=== PATIENT | male | born 1945 | race Caucasian/White ===

== ENCOUNTER 2018-04-02 15:24 | Inpatient (IN) | payer BC, OTHER ==
[~2018-04-02] VITALS: Ht 182.9 cm; Wt 94.5 kg
[~2018-04-02 15:24] MED LIST: ACYC-57 PO; ASPI81TA28 PO; CHOL20007 PO; CRS/10 PO; MULT-506 PO; OMEG10007 PO; PANT40TA PO; PSYL48.59 PO
[2018-04-02] MEDS ORDERED: ACETAMINOPHEN 500 MG TAB PO STA (15:40)
[2018-04-02] MEDS ORDERED: SODIUM CHLORIDE 0.9% 1000ML 1,000 ML IV ONE (15:40)
--- NOTE | 2018-04-02 15:40 | EMERGENCY ROOM VISIT NOTE ---
History Report prepared by Babitaibhollie: Briseyda Valdes Under the Supervision of: Dr. Reza Louis M.D. First contact with patient: 15:32 Chief Complaint: REFERRED BY DOCTOR Stated Complaint: CHILLS, SWEATING, NAUSEA, DR. LARA REFERRED History of Present Illness The patient is a 72 year old male who presents to the Emergency Room with complaints of a persistent fever for the past 2 days. He states he has also experienced a headache, body aches, chills and nausea. This morning he experienced "profuse sweating and shaking", so he went to see his PCP, Dr. Lara , and was referred here to the ED. The patient admits to a minor cough and a decreased appetite, stating he only had a bowl of soup for lunch today. He denies any abdominal pain. He states his only daily medications are for hyperlipidemia and cold sores. [place], but denies noticing any recent rashes on the patient. 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 A total of 10 systems reviewed and were otherwise negative. Past Medical & Surgical Medical Problems: (1) Febrile illness, acute (2) Hyperlipidemia (3) Kidney stone (4) Recurrent cold sores Surgical Problems: (1) History of nephrectomy Family History Cancer Diabetes mellitus Gallbladder disease Heart disease Social History Smoking Status: Former Smoker Alcohol Use: occasionally Drug Use: none Marital Status: Housing Status: lives with family Occupation Status: retired Current/Historical Medications Scheduled Acetaminophen (Tylenol Arthritis Ext Rel), 1,300 MG PO prn ud Acyclovir (Zovirax), 400 MG PO BID Aspirin (Aspirin Ec), 81 MG PO DAILY Cholecalciferol (Vitamin D3), 1 TAB PO QAM Fish Oil ([place]-3), 1,000 MG PO QAM Multivitamin (Multivitamin), 1 TAB PO QAM Pantoprazole (Protonix), 40 MG PO PRN Psyllium (Metamucil), 1 DOSE PO QAM Rosuvastatin Calcium (Crestor), 10 MG PO HS Allergies Coded Allergies: Levofloxacin (Verified Allergy, Intermediate, Metal taste, diarrhea, ) Physical Exam Vital Signs Date Time Temp Pulse Resp B/P (MAP) Pulse Ox O2 Delivery O2 Flow Rate FiO2 04/02/18 17:34 95 Nasal Cannula 2.0 04/02/18 16:38 111 18 155/75 94 Room Air 04/02/18 16:01 106 04/02/18 15:28 36.8 104 20 151/85 93 Room Air Physical Exam GENERAL: Awake, alert, well-appearing, rigors on examination, in no acute distress HENT: Normocephalic, atraumatic. Oropharynx unremarkable. EYES: Normal conjunctiva. Sclera non-icteric. NECK: Supple. No nuchal rigidity. FROM. No JVD. RESPIRATORY: Clear to auscultation. CARDIAC: Regular rate, normal rhythm. Extremities warm and well perfused. Pulses equal. ABDOMEN: Soft, non-distended. No tenderness to palpation. No rebound or guarding. No masses. RECTAL: Deferred. MUSCULOSKELETAL: Chest examination reveals no tenderness. The back is symmetrical on inspection without obvious abnormality. There is no CVA tenderness to palpation. No joint edema. LOWER EXTREMITIES: Calves are equal size bilaterally and non-tender. No edema. No discoloration. NEURO: Normal sensorium. No sensory or motor deficits noted. SKIN: No rash or jaundice noted. Medical Decision & Procedures ER Provider Diagnostic Interpretation: Radiology results as stated below per my review and radiologist interpretation: CHEST ONE VIEW PORTABLE CLINICAL HISTORY: Sepsis COMPARISON STUDY: 03/03/2016 FINDINGS: The bones soft tissues and hemidiaphragms are normal. The cardiomediastinal silhouette is normal. The lungs are clear. The pulmonary vasculature is normal. Slight bibasilar interstitial prominence IMPRESSION: Slight bibasilar interstitial prominence. Otherwise negative study. The above report was generated using voice recognition software. It may contain grammatical, syntax or spelling errors. Electronically signed by: River Slater M.D. 04/02/2018 4:50 PM Laboratory Results Test 04/02/18 15:50 04/02/18 16:04 04/02/18 16:10 04/02/18 16:31 Influenza Type A (RT-PCR) Neg for Influ A (NEG) Influenza Type B (RT-PCR) Neg for Influ B (NEG) Urine Color DK YELLOW Urine Appearance CLEAR (CLEAR) Urine pH 5.0 (4.5-7.5) Urine Specific [employer] [place] [employer] [place] 1.026 (1.000-1.030) Urine Protein 2+ (NEG) Urine Glucose (UA) NEG (NEG) Urine Ketones 1+ (NEG) Urine Occult Blood 1+ (NEG) Urine Nitrite NEG (NEG) Urine Bilirubin NEG (NEG) Urine Urobilinogen NEG (NEG) Urine Leukocyte Esterase NEG (NEG) Urine WBC (Auto) 1-5 /hpf (0-5) Urine RBC (Auto) 5-10 /hpf (0-4) Urine Hyaline Casts (Auto) 1-5 /lpf (0-5) Urine Epithelial Cells (Auto) 10-20 /lpf (0-5) Urine Bacteria (Auto) NEG (NEG) Nucleated RBC Absolute Count (auto) 0.02 K/uL (0-0) Nucleated Red Blood Cells % 0.5 % Toxic Vacuolation OCCASIONAL Platelet Estimate DECREASED Peripheral Blood Smear Path Consult Erythrocyte Sedimentation Rate 17 mm/hr (0-14) Total Creatine Kinase 137 U/L (39-308) Creatine Kinase MB < 1.0 ng/ml (0.5-3.6) Creatine Kinase MB Ratio (0-3.0) Troponin I < 0.015 ng/ml (0-0.045) Globulin 4.1 gm/dl (2.5-4.0) Albumin/Globulin Ratio 1.0 (0.9-2) Procalcitonin 0.79 ng/ml (0-0.5) Lyme Disease IgG Antibody NEG (NEG) Lyme Disease IgM Antibody NEG (NEG) Bedside Lactic Acid Venous 3.37 mmol/L (0.90-1.70) Labs reviewed by ED physician. Medications Administered Medications (Trade) Dose Ordered Sig/[place] Route Start Time Stop Time Status Last Admin Dose Admin Sodium Chloride 1,000 ml @ 999 mls/hr Q1H1M ONCE IV 04/02/18 15:40 04/02/18 16:40 DC 04/02/18 16:32 999 MLS/HR Acetaminophen (Tylenol Tab) 1,000 mg NOW STAT PO 04/02/18 15:40 04/02/18 15:43 DC 04/02/18 16:37 1,000 MG Ondansetron HCl (Zofran Inj) 4 mg NOW STAT IV 04/02/18 15:59 04/02/18 16:00 DC 04/02/18 16:33 4 MG Sodium Chloride 1,000 ml @ 999 mls/hr Q1H1M STAT IV 04/02/18 16:42 04/02/18 17:42 DC 04/02/18 16:42 999 MLS/HR Ketorolac Tromethamine (Toradol Inj) 30 mg NOW STAT IV 04/02/18 16:46 04/02/18 16:48 DC 04/02/18 17:30 30 MG Ceftriaxone Sodium (Rocephin Inj) 2 gm NOW STAT IV 04/02/18 17:16 04/02/18 17:18 DC 04/02/18 17:29 2 GM ECG Per My Interpretation Indication: weakness Rate (beats per minute): 106 Rhythm: sinus tachycardia Findings: other (No ST elevation, no ST depression) ED Course 153: Past medical records reviewed. The patient was evaluated in room C9. A complete history and physical examination was performed. 1550: I reevaluated the patient. He is resting comfortably with warm blankets. 1610: I reevaluated the patient. He has provided a urine specimen. He briefly became nauseous and vomited clear emesis. I will order anti-nausea medication. 1645: I reevaluated the patient. He is currently getting an Xray. 1720: I discussed the patients case with Dr. Ritchie, [facility] Hospitalist. The patient will be further evaluated. 172: I reevaluated the patient. He is still uncomfortable with chills and rigors. I discussed my recommendation he remain in the hospital for further evaluation and management and he and his verbalized complete understanding and agreement. Medical Decision Differential diagnosis: Etiologies such as metabolic, infection, hypo/hyperglycemia, electrolyte abnormalities, cardiac sources, intracerebral event, toxicologic, neurologic, as well as others were entertained. This is a 72-year-old male who presents emergency department complaining of rigors and fevers. Patient was given Tylenol as well as Toradol here in the emergency department. He does not have any evidence of meningitis or encephalitis on physical examination. I did discuss with the patient that we may need a lumbar puncture however using shared medical decision making, the patient does not feel that this is the worst headache of his life. 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 For this reason he was started on 2 g of Rocephin. His lactate is elevated and therefore did discuss the case with the hospitalist service who agreed to admit the patient. While in the emergency department the patient was given 2 L of fluid. Both patient and are in agreement with the treatment plan. Medication Reconcilliation Current Medication List: was personally reviewed by me Blood Pressure Screening Patient's blood pressure: Elevated blood pressure Blood pressure disposition: Referred to PCP (The patients elevated blood pressure will be further managed by the inpatient hospital medicine team) Consults Time Called: 1715 Consulting Physician: Dr. Ritchie, [facility] Returned Call: 1720 I discussed the patients case with Dr. Ritchie, [facility]. The patient will be further evaluated. Impression Primary Impression: Fever Scribe Attestation The scribe's documentation has been prepared under my direction and personally reviewed by me in its entirety. I confirm that the note above accurately reflects all work, treatment, procedures, and medical decision making performed by me. Departure Information Dispostion Being Evaluated By Hospitalist Referrals Ronen Claros M.D. (PCP) Patient Instructions My [facility] Problem Qualifiers Primary Impression: Fever Fever type: unspecified Qualified Codes: R50.9 - Fever, unspecified
[2018-04-02] MEDS ORDERED: ONDANSETRON INJ 2 MG/ML 2 ML VIAL IV STA (15:59)
[2018-04-02] MEDS ORDERED: ACET1TAB84 PO (16:32)
[2018-04-02] MEDS ORDERED: SODIUM CHLORIDE 0.9% 1000ML 1,000 ML IV STA (16:42)
[2018-04-02] MEDS ORDERED: KETOROLAC TROMETHAMINE 30 MG/ML VIAL IV STA (16:46)
--- NOTE | 2018-04-02 16:52 | DIAGNOSTIC IMAGING REPORT ---
CHEST ONE VIEW PORTABLE CLINICAL HISTORY: Sepsis COMPARISON STUDY: 03/03/2016 FINDINGS: The bones soft tissues and hemidiaphragms are normal. The cardiomediastinal silhouette is normal. The lungs are clear. The pulmonary vasculature is normal. Slight bibasilar interstitial prominence IMPRESSION: Slight bibasilar interstitial prominence. Otherwise negative study. The above report was generated using voice recognition software. It may contain grammatical, syntax or spelling errors. Electronically signed by: River Slater M.D. 04/02/2018 4:50 PM Dictated Date/Time: 04/02/2018 4:50 PM
[2018-04-02 16:56] LABS: PTT PATIENT 29.6 SECONDS (21.0-31.0)
[2018-04-02 17:11] LABS: HEMATOCRIT 47.2 % (42-52); HEMOGLOBIN 16.8 g/dL (14.0-18.0); MEAN CELL VOLUME 89.4 fL (80-100); MEAN CORPUSCULAR HEMOGLOBIN 31.8 pg (25-34); MEAN CORPUSCULAR HGB CONC 35.6 g/dl (32-36); MEAN PLATELET VOLUME 9.8 fL (7.4-10.4); NUCLEATED RED BLOOD CELL ABS 0.02 K/uL (0-0); PLATELET COUNT 57 K/uL (130-400); RED CELL DISTRIBUTION WIDTH CV 13.3 % (11.5-14.5); RED CELL DISTRIBUTION WIDTH SD 43.4 fL (36.4-46.3); WHITE BLOOD COUNT 4.65 K/uL (4.8-10.8)
[2018-04-02 17:13] LABS: ALKALINE PHOSPHATASE 65 U/L (45-117); ALT/SGPT 45 U/L (12-78); AST/SGOT 53 U/L (15-37); BLOOD UREA NITROGEN 21 mg/dl (7-18); CALCIUM 8.5 mg/dl (8.5-10.1); CARBON DIOXIDE 24 mmol/L (21-32); CKMB < 1.0 ng/ml (0.5-3.6); GLUCOSE 110 mg/dl (70-99); POTASSIUM 3.6 mmol/L (3.5-5.1); SODIUM 134 mmol/L (136-145); TOTAL PROTEIN 8.1 gm/dl (6.4-8.2)
[2018-04-02] MEDS ORDERED: CEFTRIAXONE SOD INJ 1 GM ADDVIAL IV STA (17:16)
[2018-04-02 17:33] LABS: INFLUENZA A PCR Neg for Influ A (NEG); INFLUENZA B PCR Neg for Influ B (NEG)
[2018-04-02 17:39] LABS: BASO % 0.2 %; BASO ABS # 0.01 K/uL (0-0.2); IG# 0.01 K/uL (0.00-0.02); LYMPH % 7.7 %; LYMPH ABS # 0.36 K/uL (1.2-3.4); MONO % 4.1 %; MONO ABS # 0.19 K/uL (0.11-0.59); NEUT % 87.8 %; NEUT ABS # 4.08 K/uL (1.4-6.5)
[2018-04-02] MEDS ORDERED: ACETAMINOPHEN IV 100 ML IV PRN (17:45)
[2018-04-02] MEDS ORDERED: DiphenhydrAMINE HCL 50 MG/ML VIAL IV PRN (17:45)
[2018-04-02] MEDS ORDERED: ONDANSETRON INJ 2 MG/ML 2 ML VIAL IV PRN (17:45)
[2018-04-02] MEDS ORDERED: PANTOprazole SOD 40 MG TAB PO PRN (18:00)
[2018-04-02] MEDS ORDERED: VANCOMYCIN CONSULT ACTIVE PRN (18:00)
[2018-04-02] MEDS ORDERED: TRAMADOL HCL 50 MG TAB PO PRN (18:00)
[2018-04-02] MEDS ORDERED: IV FLUIDS COMPLETED PRN (18:15)
--- NOTE | 2018-04-02 18:42 | History and Physical ---
History & Physical Date & Time of Service: Apr 02, 2018 at 18:42 Chief Complaint: Chills, Sweating, Nausea, Dr. Lara Referred Primary Care Physician: Ronen Claros M.D. History of Present Illness Source: patient, spouse, hospital records The patient is a 72-year-old male who presents to emergency department with 2 days of persistent fever with headache, generalized body aches,myalgias, arthralgias, chills and nausea without vomiting. He and his reports that he has episodes of intense shaking and sweating. The patient went to see his PCP Dr. Lara today, and was sent to the emergency department for assessment. [place], but does not specifically remember any bites of any sort, tick related or otherwise. He also does not recall any rashes. They have not had any other recent travel or exposures that he is aware of. Past Medical/Surgical History Medical Problems: (1) Febrile illness, acute (2) Headache (3) Hyperlipidemia (4) Kidney stone (5) Recurrent cold sores (6) Vertigo (7) Vomiting Surgical Problems: (1) History of nephrectomy Family History Cancer Diabetes mellitus Gallbladder disease Heart disease Social History Smoking Status: Former Smoker Smokeless Tobacco Use: No Alcohol Use: none Drug Use: none Marital Status: Housing status: lives with family Occupational Status: retired Immunizations History of Influenza Vaccine: Unknown History of Tetanus Vaccine?: Unknown History of Pneumococcal: Unknown History of Hepatitis B Vaccine: Unknown Allergies Coded Allergies: Levofloxacin (Verified Allergy, Intermediate, Metal taste, diarrhea, ) Home Medications Scheduled Acetaminophen (Tylenol Arthritis Ext Rel), 1,300 MG PO prn ud Acyclovir (Zovirax), 400 MG PO BID Aspirin (Aspirin Ec), 81 MG PO DAILY Cholecalciferol (Vitamin D3), 1 TAB PO QAM Fish Oil ([place]-3), 1,000 MG PO QAM Multivitamin (Multivitamin), 1 TAB PO QAM Pantoprazole (Protonix), 40 MG PO PRN Psyllium (Metamucil), 1 DOSE PO QAM Rosuvastatin Calcium (Crestor), 10 MG PO HS Review of Systems The patient denies chest pain, palpitations, shortness of breath, dyspnea on exertion, cough, lower extremity swelling, sore throat, vomiting, diarrhea , constipation, abdominal pain, pelvic pain, blood in urine or stool, dysuria, urinary frequency or urgency, lightheadedness, dizziness, headache, memory loss, loss of consciousness, rash, abnormal bruising or bleeding, imbalance, focal weakness, numbness or tingling in arms or legs,or neck pain. The review of systems is otherwise negative other than for that already noted above, and at least 10 systems have been reviewed. Physical Exam Vital Signs Date Time Temp Pulse Resp B/P (MAP) Pulse Ox O2 Delivery O2 Flow Rate FiO2 04/02/18 18:31 83 16 130/75 98 Room Air 04/02/18 17:34 95 Nasal Cannula 2.0 04/02/18 16:38 111 18 155/75 94 Room Air 04/02/18 16:01 106 04/02/18 15:28 36.8 104 20 151/85 93 Room Air The patient is awake, alert and oriented 3, well developed and well nourished, normocephalic and atraumatic, lying in bed and in no acute distress. HEENT--PERRL, EOMI, mucous membranes and oropharynx dry. Neck--supple. No JVD. No bruits. Thyroid normal, trachea midline, no adenopathy. Heart--normal S1 and S2. No murmurs, rubs or gallops. Lungs--clear bilaterally, no respiratory distress, no accessory muscle use. Abdomen--normal bowel sounds and soft. Nontender. Nondistended, no hernias or masses, no organomegaly. Extremities--no cyanosis or clubbing. No edema. There are good distal pulses b/ l. Dermatologic--normal skin turgor, normal color, no abnormal lymph nodes, no rash. Neurologic--cranial nerves II through XII grossly intact. Rheumatologic--normal range of motion. Psychiatric--normal affect. Diagnostics Laboratory Results Results Past 24 Hours Test 04/02/18 15:50 04/02/18 16:04 04/02/18 16:10 04/02/18 16:31 Range/Units Influenza Type A (RT-PCR) Neg for Influ A NEG Influenza Type B (RT-PCR) Neg for Influ B NEG Urine Color DK YELLOW Urine Appearance CLEAR CLEAR Urine pH 5.0 4.5-7.5 Urine Specific [place] 1.026 1.000-1.030 Urine Protein 2+ NEG Urine Glucose (UA) NEG NEG Urine Ketones 1+ NEG Urine Occult Blood 1+ NEG Urine Nitrite NEG NEG Urine Bilirubin NEG NEG Urine Urobilinogen NEG NEG Urine Leukocyte Esterase NEG NEG Urine WBC (Auto) 1-5 0-5 /hpf Urine RBC (Auto) 5-10 0-4 /hpf Urine Hyaline Casts (Auto) 1-5 0-5 /lpf Urine Epithelial Cells (Auto) 10-20 0-5 /lpf Urine Bacteria (Auto) NEG NEG White Blood Count 4.65 4.8-10.8 K/uL Red Blood Count 5.28 4.7-6.1 M/uL Hemoglobin 16.8 14.0-18.0 g/dL Hematocrit 47.2 42-52 % Mean Corpuscular Volume 89.4 80-100 fL Mean Corpuscular Hemoglobin 31.8 25-34 pg Mean Corpuscular Hemoglobin Concent 35.6 32-36 g/dl Platelet Count 57 130-400 K/uL Mean Platelet Volume 9.8 7.4-10.4 fL Neutrophils (%) (Auto) 87.8 % Lymphocytes (%) (Auto) 7.7 % Monocytes (%) (Auto) 4.1 % Eosinophils (%) (Auto) 0.0 % Basophils (%) (Auto) 0.2 % Neutrophils # (Auto) 4.08 1.4-6.5 K/uL Lymphocytes # (Auto) 0.36 1.2-3.4 K/uL Monocytes # (Auto) 0.19 0.11-0.59 K/uL Eosinophils # (Auto) 0.00 0-0.5 K/uL Basophils # (Auto) 0.01 0-0.2 K/uL RDW Standard Deviation 43.4 36.4-46.3 fL RDW Coefficient of Variation 13.3 11.5-14.5 % Immature Granulocyte % (Auto) 0.2 % Immature Granulocyte # (Auto) 0.01 0.00-0.02 K/uL Nucleated RBC Absolute Count (auto) 0.02 0-0 K/uL Nucleated Red Blood Cells % 0.5 % Toxic Vacuolation OCCASIONAL Platelet Estimate DECREASED Peripheral Blood Smear Path Consult Erythrocyte Sedimentation Rate 17 0-14 mm/hr Prothrombin Time 10.8 9.0-12.0 SECONDS Prothromb Time International Ratio 1.0 0.9-1.1 Activated Partial Thromboplast Time 29.6 21.0-31.0 SECONDS Partial Thromboplastin Ratio 1.1 Sodium Level 134 136-145 mmol/L Potassium Level 3.6 3.5-5.1 mmol/L Chloride Level 99 98-107 mmol/L Carbon Dioxide Level 24 21-32 mmol/L Anion Gap 11.0 3-11 mmol/L Blood Urea Nitrogen 21 7-18 mg/dl Creatinine 1.30 0.60-1.40 mg/dl Est Creatinine Clear Calc Drug Dose 62.0 ml/min Estimated GFR () 63.6 Estimated GFR (Non- 54.9 BUN/Creatinine Ratio 16.0 10-20 Random Glucose 110 70-99 mg/dl Calcium Level 8.5 8.5-10.1 mg/dl Total Bilirubin 1.0 0.2-1 mg/dl Aspartate Amino Transf (AST/SGOT) 53 15-37 U/L Alanine Aminotransferase (ALT/SGPT) 45 12-78 U/L Alkaline Phosphatase 65 45-117 U/L Total Creatine Kinase 137 39-308 U/L Creatine Kinase MB < 1.0 0.5-3.6 ng/ml Creatine Kinase MB Ratio 0-3.0 Troponin I < 0.015 0-0.045 ng/ml Total Protein 8.1 6.4-8.2 gm/dl Albumin 4.0 3.4-5.0 gm/dl Globulin 4.1 2.5-4.0 gm/dl Albumin/Globulin Ratio 1.0 0.9-2 Procalcitonin 0.79 0-0.5 ng/ml Lyme Disease IgG Antibody NEG NEG Lyme Disease IgM Antibody NEG NEG Bedside Lactic Acid Venous 3.37 0.90-1.70 mmol/L Microbiology Results 04/02/18 Blood Culture, Received Pending 04/02/18 Blood Culture, Received Pending Diagnostic Radiology Patient Name: BANDAR VARGAS Unit Number: [id number] Dictated: 04/02/181649 Transcribed: 04/02/181649 MS Printed Date/Time: [~ rep prt dt]/[~ rep prt tm] [~ rep ct labl] - [~ rep ct ivnm] [facility] [place] [address] Dictated: 08/09/18 1650 Transcribed: 04/02/18 1650 MS Printed Date/Time: [~ rep prt dt]/[~ rep prt tm] [~ rep ct labl] - [~ rep ct ivnm] CHEST ONE VIEW PORTABLE CLINICAL HISTORY: Sepsis COMPARISON STUDY: 03/03/2016 FINDINGS: The bones soft tissues and hemidiaphragms are normal. The cardiomediastinal silhouette is normal. The lungs are clear. The pulmonary vasculature is normal. Slight bibasilar interstitial prominence IMPRESSION: Slight bibasilar interstitial prominence. Otherwise negative study. The above report was generated using voice recognition software. It may contain grammatical, syntax or spelling errors. Electronically signed by: River Slater M.D. 04/02/2018 4:50 PM Dictated Date/Time: 04/02/2018 4:50 PM The status of this report is Signed. Draft = Not yet reviewed or approved by Radiologist. Signed = Reviewed and approved by Radiologist. <AttendingPhy></AttendingPhy> <FamilyPhy>Ronen Claros M.D.</FamilyPhy> < PrimaryPhy>Ronen Claros M.D.</PrimaryPhy> <UnitNumber>[id number]</ UnitNumber> <VisitNumber>[id number]</VisitNumber> <PatientName>BANDAR VARGAS</PatientName> <DateOfBirth>1945</DateOfBirth> <Location>[facility]</ Location> <ServiceDate>04/02/18</ServiceDate> <MNE>ESINDI</MNE> <OrderingPhy> Reza Louis MD</OrderingPhy> <OrderingPhyMNE>f rep ord dr figueroa</ OrderingPhyMNE> <DictatingPhyMNE>f rep dict dr figueroa</DictatingPhyMNE> <CCListMNE> f rep ct kaylene</CCListMNE> <AdmittingPhyMNE>f pt admit dr figueroa</AdmittingPhyMNE> < AttendingPhyMNE>f pt attend dr figueroa</AttendingPhyMNE> <ConsultingPhyMNE>f pt consult dr figueroa</ConsultingPhyMNE> <FamilyPhyMNE>f pt fam dr figueroa</FamilyPhyMNE> <OtherPhyMNE>f pt other dr figueroa</OtherPhyMNE> < PrimaryPhyMNE>f pt prim care dr figueroa</PrimaryPhyMNE> <ReferringPhyMNE>f pt referring dr figueroa</ReferringPhyMNE> EKG BANDAR VARGAS ID:[id number] 02-APR-2018 15:42:57 [facility] Poor data quality, interpretation may be adversely affected Sinus tachycardia Right axis deviation Abnormal ECG When compared with ECG of 14-DEC-2014 02:45, QRS axis Shifted right QT has shortened 25mm/s 10mm/mV 150Hz 8.0 SP2 12SL 241 NINFA: 15 Referred by: ED Unconfirmed Vent. rate 106 BPM MS interval 174 ms QRS duration 76 ms QT/QTc 298/395 ms P-R-T axes 63 112 43 1945 (72 yr) Male Room: Loc:15 Warp Trucker:MUNDO Jovel ind: Impression Assessment and Plan Acute febrile illness/polymyalgias and polyarthralgias/lactic acidosis-- Admit to monitored bed to follow closely for possible developing sepsis. 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 Ceftriaxone 2 g IV daily. Vancomycin IV per pharmacokinetic monitoring. Peripheral smear pending. Thrombocytopenia, elevated pro-calcitonin, elevated [id number]-kbiq lactic acid. Labs for ehrlichiosis, anaplasmosis pending. Check EBV, CMV, parvovirus and coxsackie B titers. NSS + KCl 20 mEq at 125 ML's per hour. Serial CBC with differential, chemistry profile and magnesium levels. Thrombocytopenia-- Hold aspirin. Peripheral smear pending. GERD-- Change as needed pantoprazole to daily 40 mg daily. Hyperlipidemia-- Continue rosuvastatin 10 mg at bedtime. Viral prophylaxis-- Continue his usual acyclovir 400 mg p.o. twice daily. Advanced Directives Existing Advance Directive: No Existing Living Will: No Existing Power of Steel Sampler: No Resuscitation Status VTE Prophylaxis Will order VTE Prophylaxis: Yes Social Service Consult None Apply
[2018-04-02 19:12] VITALS: BP 118/74; PULSE 90; TEMP 36.7; O2SAT 95; Ht 182.9 cm; Wt 94.5 kg
[2018-04-02] MEDS ORDERED: VANCOMYCIN IV 2,250 MG in SODIUM CHLORIDE 0.9% 500ML 500 ML IV ONE (19:30)
[2018-04-02] MEDS: NSS + 20MEQ KCL 1000ML 1,000 ML IV SCH (19:43)
[2018-04-02] MEDS: ROSUVASTATIN CALCIUM 10 MG TAB PO SCH (19:44)
--- NOTE | 2018-04-02 20:02 | Pharmacy Progress Note ---
Pharmacy Abx Initial Consult Date of Service Apr 02, 2018. Pharmacy Dosing Scope Date of Consult: 04/02/18 Consultation requested by: Dr. Ritchie Pharmacy is consulted to initiate vancomycin IV dosing therapy, order appropriate labs and adjust drug dose/frequency. Subjective The patient is a 72 year old male admitted on Apr 02, 2018 at 17:59. Objective Height (Feet): 6 Height (Inches): 0 Weight (Kilograms): 94.00 Vital Signs (Past 12Hrs) Vital Signs Past 12 Hours Date Time Temp Pulse Resp B/P (MAP) Pulse Ox O2 Delivery O2 Flow Rate FiO2 04/02/18 19:12 36.7 90 20 118/74 (89) 95 Room Air 04/02/18 18:31 83 16 130/75 98 Room Air 04/02/18 17:34 95 Nasal Cannula 2.0 04/02/18 16:38 111 18 155/75 94 Room Air 04/02/18 16:01 106 04/02/18 15:28 36.8 104 20 151/85 93 Room Air Lab Results (24Hrs) Laboratory Tests (24 Hours) Test 04/02/18 16:10 04/02/18 19:34 Erythrocyte Sedimentation Rate 17 mm/hr (0-14) H White Blood Count 4.65 K/uL (4.8-10.8) L Red Blood Count 5.28 M/uL (4.7-6.1) Hemoglobin 16.8 g/dL (14.0-18.0) Hematocrit 47.2 % (42-52) Mean Corpuscular Volume 89.4 fL (80-100) Mean Corpuscular Hemoglobin 31.8 pg (25-34) Mean Corpuscular Hemoglobin Concent 35.6 g/dl (32-36) Platelet Count 57 K/uL (130-400) L Mean Platelet Volume 9.8 fL (7.4-10.4) Neutrophils (%) (Auto) 87.8 % Lymphocytes (%) (Auto) 7.7 % Monocytes (%) (Auto) 4.1 % Eosinophils (%) (Auto) 0.0 % Basophils (%) (Auto) 0.2 % Neutrophils # (Auto) 4.08 K/uL (1.4-6.5) Lymphocytes # (Auto) 0.36 K/uL (1.2-3.4) L Monocytes # (Auto) 0.19 K/uL (0.11-0.59) Eosinophils # (Auto) 0.00 K/uL (0-0.5) Basophils # (Auto) 0.01 K/uL (0-0.2) Procalcitonin 0.79 ng/ml (0-0.5) H Total Creatine Kinase 137 U/L (39-308) Micro Results Date/Time Source Procedure Growth Status 04/02/18 16:20 Blood Blood Culture Pending Received 04/02/18 16:10 Blood Blood Culture Pending Received Assessment & Plan Assessment 72 year old male admitted with generalized weakness and illness. Empiric vancomycin ordered. Plan vancomycin for treatment of generalized illness Vancomycin IV * Loading dose: 2250 mg (23.9 mg/kg) * Maintenance dose: 1250 mg IV (13.2 mg/kg) every 12 hours * Goal trough level for generalized weakness : 15 to 20 mcg/mL * Trough NOT ordered since currently only ongoing x 48 hours Pharmacy will continue to follow and will adjust dose/frequency as necessary. Thank you.
[2018-04-02 23:23] VITALS: BP 120/61; PULSE 87; TEMP 36.8; O2SAT 97
[2018-04-03] VITALS (8 sets, daily range): BP systolic 106–119; BP diastolic 56–69; PULSE 73–106; TEMP 36.5–38; O2SAT 93–99
[2018-04-03] MEDS: NSS + 20MEQ KCL 1000ML 1,000 ML IV SCH ×3 (05:56→20:38)
[2018-04-03 06:49] LABS: HEMATOCRIT 38.1 % (42-52); HEMOGLOBIN 13.2 g/dL (14.0-18.0); MEAN CELL VOLUME 88.4 fL (80-100); MEAN CORPUSCULAR HEMOGLOBIN 30.6 pg (25-34); MEAN CORPUSCULAR HGB CONC 34.6 g/dl (32-36); MEAN PLATELET VOLUME 9.8 fL (7.4-10.4); PLATELET COUNT 33 K/uL (130-400); RED CELL DISTRIBUTION WIDTH CV 13.4 % (11.5-14.5); RED CELL DISTRIBUTION WIDTH SD 44.1 fL (36.4-46.3); WHITE BLOOD COUNT 2.71 K/uL (4.8-10.8)
[2018-04-03 06:53] LABS: INR 1.1 (0.9-1.1); PTT PATIENT 32.4 SECONDS (21.0-31.0)
[2018-04-03 07:15] LABS: BASO % 0.4 %; BASO ABS # 0.01 K/uL (0-0.2); LYMPH % 9.6 %; LYMPH ABS # 0.26 K/uL (1.2-3.4); MONO % 4.8 %; MONO ABS # 0.13 K/uL (0.11-0.59); NEUT % 85.2 %; NEUT ABS # 2.31 K/uL (1.4-6.5)
[2018-04-03 07:16] LABS: CALCIUM 7.9 mg/dl (8.5-10.1); CREATININE 1.04 mg/dl (0.60-1.40); POTASSIUM 3.9 mmol/L (3.5-5.1); TOTAL PROTEIN 6.3 gm/dl (6.4-8.2)
[2018-04-03] MEDS: PSYLLIUM 58.6% PWD PACK S\\F PO SCH (07:43)
[2018-04-03] MEDS: CHOLECALCIFEROL 1000 INTER.UNIT TAB PO SCH (07:44)
[2018-04-03] MEDS: ACETAMINOPHEN 325 MG TAB PO PRN ×3 (07:44→23:52)
[2018-04-03] MEDS: MULTIVITAMIN TAB PO SCH (07:44)
[2018-04-03] MEDS ORDERED: VANCOMYCIN IV 1,250 MG in SODIUM CHLORIDE 0.9% 250ML 250 ML IV SCH (08:00)
[2018-04-03] MEDS: DOXYCYCLINE HYCLATE 100 MG CAP PO SCH ×2 (10:00→20:12)
--- NOTE | 2018-04-03 10:25 | Family Medicine Progress Note ---
Progress Note Date of Service Apr 03, 2018. Subjective Pt evaluation today including: conversation w/ patient, conversation w/ family , physical exam, chart review, review of studies, review of inpatient medication list Pain: Still reporting myalgia and arthralgia Voiding: no voiding problems Patient reports no change in his symptoms. He continues to report fever, chills , diaphoresis, and headache. Constitutional: + fever, + chills, + sweats Respiratory: + shortness of breath, No cough Cardiovascular: No chest pain Abdomen: No pain, No nausea, No vomiting, No diarrhea Musculoskeletal: + joint pain, + muscle pain Male : + dysuria Neurologic: No numbness/tingling Endo: + fatigue Skin: No rash, No new/changing skin lesions All Other Systems: Reviewed and Negative Medications Current Inpatient Medications Medications (Trade) Dose Ordered Sig/[place] Route Start Time Stop Time Status Last Admin Dose Admin Ondansetron HCl (Zofran Inj) 4 mg Q6H PRN IV 04/02/18 17:45 05/02/18 17:44 Diphenhydramine HCl (Benadryl Inj) 50 mg Q6H PRN IV 04/02/18 17:45 05/02/18 17:44 Acetaminophen 100 ml @ 400 mls/hr Q8H PRN IV 04/02/18 17:45 05/02/18 17:44 Potassium Chloride/Sodium Chloride 1,000 ml @ 125 mls/hr Q8H IV 04/02/18 19:30 05/02/18 19:29 04/03/18 05:56 125 MLS/HR Ceftriaxone Sodium 2000 mg/ Dextrose 70 ml @ 100 mls/hr Q24H IV 04/03/18 18:00 04/05/18 17:59 Vancomycin HCl (Consult) 1 ea UD PRN N/A 04/02/18 18:00 05/02/18 17:59 Acetaminophen (Tylenol Tab) 650 mg Q4H PRN PO 04/02/18 18:00 05/02/18 17:59 04/03/18 07:44 650 MG Multivitamins (Multivitamin Tab) 1 tab QAM PO 04/03/18 09:00 05/03/18 08:59 04/03/18 07:44 1 TAB Pantoprazole Sodium (Protonix Tab) 40 mg DAILY PRN PO 04/02/18 18:00 05/02/18 17:59 Rosuvastatin Calcium (Crestor Tab) 10 mg HS PO 04/02/18 21:00 05/02/18 20:59 04/02/18 19:44 10 MG Cholecalciferol (Vitamin D Tab) 2,000 inter.unit QAM PO 04/03/18 09:00 05/03/18 08:59 04/03/18 07:44 2,000 INTER.UNIT Psyllium Hydrophilic Mucilloid (Metamucil Powder) 1 pkt QAM PO 04/03/18 09:00 05/03/18 08:59 04/03/18 07:43 1 PKT Tramadol HCl (Ultram Tab) 50 mg Q4H PRN PO 04/02/18 18:00 05/02/18 17:59 Miscellaneous (Iv Fluids Completed) 1 ea PRN PRN N/A 04/02/18 18:15 04/02/19 18:14 Vancomycin HCl 1250 mg/Sodium Chloride 275 ml @ 125 mls/hr Q12H IV 04/03/18 08:00 04/04/18 23:59 04/03/18 07:43 125 MLS/HR Doxycycline Hyclate (Vibramycin Cap) 100 mg BID PO 04/03/18 09:00 04/17/18 08:59 04/03/18 10:00 100 MG Objective Vital Signs Date Time Temp Pulse Resp B/P (MAP) Pulse Ox O2 Delivery O2 Flow Rate FiO2 04/03/18 09:05 37.1 04/03/18 08:00 Nasal Cannula 2.0 04/03/18 07:39 38.0 101 20 117/68 (84) 95 Nasal Cannula 2.0 04/03/18 03:33 36.6 106 17 109/69 (82) 98 Room Air 04/02/18 23:23 36.8 87 18 120/61 (80) 97 Nasal Cannula 2.0 04/02/18 19:15 Nasal Cannula 2.0 04/02/18 19:12 36.7 90 20 118/74 (89) 95 Room Air 04/02/18 19:12 Room Air 04/02/18 18:31 83 16 130/75 98 Room Air 04/02/18 17:34 95 Nasal Cannula 2.0 8/9/18 16:38 111 18 155/75 94 Room Air 04/02/18 16:01 106 04/02/18 15:28 36.8 104 20 151/85 93 Room Air Physical Exam General Appearance: WD/WN, no apparent distress Eyes: normal inspection, EOMI, sclerae normal ENT: hearing grossly normal Neck: no adenopathy, no carotid bruits, trachea midline Respiratory/Chest: lungs clear, no respiratory distress, no accessory muscle use, + crackles (bibasilar) Cardiovascular: no edema, no murmur Abdomen: normal bowel sounds, non tender, soft Extremities: normal inspection, no pedal edema, no calf tenderness Neurologic/Psychiatric: alert, normal mood/affect, oriented x 3 Skin: no rash, + diaphoresis Laboratory Results Last Resulted 04/03/18 05:54 Red Blood Count 4.31, Mean Corpuscular Volume 88.4, Mean Corpuscular Hemoglobin 30.6, Mean Corpuscular Hemoglobin Concent 34.6, Mean Platelet Volume 9.8, Neutrophils (%) (Auto) 85.2, Lymphocytes (%) (Auto) 9.6, Monocytes (%) (Auto) 4.8, Eosinophils (%) (Auto) 0.0, Basophils (%) (Auto) 0.4, Neutrophils # (Auto) 2.31, Lymphocytes # (Auto) 0.26, Monocytes # (Auto) 0.13, Eosinophils # (Auto) 0.00, Basophils # (Auto) 0.01 Last Resulted 04/03/18 05:54 Past 24 Hours Test 04/02/18 16:10 04/03/18 05:54 Range/Units Creatine Kinase MB < 1.0 0.5-3.6 ng/ml Creatine Kinase MB Ratio 0-3.0 Prothromb Time International Ratio 1.0 1.1 0.9-1.1 Prothrombin Time 10.8 11.2 9.0-12.0 SECONDS Total Creatine Kinase 137 39-308 U/L Troponin I < 0.015 0-0.045 ng/ml Assessment and Plan Patient is a 72 yo M who presented to ED with a 2 day h/o fevers, chills, headache, myalgias, arthralgias, and nausea. Symptoms in conjunction with elevated POC lactate/LFT, low WBC, low plt is suggestive of anaplasmosis. 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 -Lyme tests negative -Started doxycycline 100mg BID. Expect improvement within 48 hours by (04/05/18) -Will Discontinue ceftriaxone and vancomycin. If worsening lung symptoms in next 48 hours, consider CT chest then restart abx. -Lactate has returned to normal -Peripheral smear pending. -Ehrlichiosis, anaplasmosis, EBV, CMV, parvovirus and coxsackie B titers pending. -NSS + KCl 20 mEq at 125 mL/hr. -Serial CBC with differential, chemistry profile and magnesium levels. -Toradol 15 q6prn if tylenol not sufficient for headache. Thrombocytopenia -Hold aspirin. -Peripheral smear pending. GERD -Pantoprazole 40 mg daily. Hyperlipidemia -Continue rosuvastatin 10 mg hs Viral prophylaxis -Continue his acyclovir 400 mg p.o. twice daily. Dispo: Tele DVTP: none Code: FULL Resident Physician Supervision Note: I interviewed and examined the patient. Discussed with Dr. Grossman and agree with findings and plan as documented in the note. Any exceptions or clarifications are listed here: None Documented By: Prasanna Salamanca feeling the same. not any better not any worse. urine dark. no cough/sob/ chest pain vitals noted nad breathing unlabored lungs w faint base rales no rhonchi no wheeze good effort labs and diagnostics reviewed and noted anaplasmosis - doxy. supportive care. time septic picture - initially broad concerns - after further review, seems to be anaplasmosis - see above. no evidence of other infection - safe to stop vanco and ceftriaxone hypoxia - CXR read as slight bibasilar interstitial prominence - exam nonspecific - most likely atelectasis - incentive spirometry, wean O2, close clinical f/u. if worsens and shows overtly pneumonia (unlikely) would then resume broader abx; if fails to improve but picture unclear - CT chest. that said, most likely hypoxia will slowly resolve with incentive spirometry and increased activity hematuria - almost certainly nonspecific and amplified by high sp grav. visibly urine clearing with hydration. due to male/age - repeat UA/micro in 4wks to ensure clearing otherwise as above he does note baseline hx of thrombocytopenia - would consider baseline smoldering ITP. has had w/u at [facility]. never has bleeding - mostly this relates as it obviously would lower target for recovery of platelets Resident Tracking Resident Involvement: Resident Care Provided Care Provided: Adult Hospital Medicine
[2018-04-03] MEDS ORDERED: KETOROLAC TROMETHAMINE 15 MG/ML VIAL IV PRN (13:00)
[2018-04-03] MEDS ORDERED: CEFTRIAXONE SOD INJ 2,000 MG in DEXTROSE 5% 50ML 50 ML IV SCH (18:00)
[2018-04-03] MEDS: ROSUVASTATIN CALCIUM 10 MG TAB PO SCH (20:12)
[2018-04-03] MEDS: ACYCLOVIR 200 MG CAP PO SCH (20:13)
[2018-04-04] MEDS: NSS + 20MEQ KCL 1000ML 1,000 ML IV SCH ×2 (04:31→12:32)
[2018-04-04] MEDS: ACETAMINOPHEN 325 MG TAB PO PRN ×2 (04:42→15:28)
[2018-04-04 06:37] LABS: PTT PATIENT 34.9 SECONDS (21.0-31.0)
[2018-04-04 06:41] LABS: ALBUMIN 2.7 gm/dl (3.4-5.0); CALCIUM 7.7 mg/dl (8.5-10.1); CREATININE 0.73 mg/dl (0.60-1.40); POTASSIUM 3.8 mmol/L (3.5-5.1); TOTAL PROTEIN 5.5 gm/dl (6.4-8.2)
[2018-04-04 06:50] LABS: MEAN CELL VOLUME 88.8 fL (80-100); MEAN CORPUSCULAR HEMOGLOBIN 30.5 pg (25-34); MEAN CORPUSCULAR HGB CONC 34.3 g/dl (32-36); PLATELET COUNT 29 K/uL (130-400); RED CELL DISTRIBUTION WIDTH CV 13.5 % (11.5-14.5); RED CELL DISTRIBUTION WIDTH SD 44.5 fL (36.4-46.3); WHITE BLOOD COUNT 1.48 K/uL (4.8-10.8)
[2018-04-04 06:51] LABS: BASO ABS # 0.03 K/uL (0-0.2); LYMPH % 22.3 %; LYMPH ABS # 0.33 K/uL (1.2-3.4); MONO % 12.8 %; MONO ABS # 0.19 K/uL (0.11-0.59); NEUT % 62.9 %; NEUT ABS # 0.93 K/uL (1.4-6.5)
[2018-04-04] MEDS ORDERED: VANCOMYCIN TROUGH ONE (07:30)
[2018-04-04] MEDS: MULTIVITAMIN TAB PO SCH (07:40)
[2018-04-04] MEDS: DOXYCYCLINE HYCLATE 100 MG CAP PO SCH ×2 (07:40→20:22)
[2018-04-04] MEDS: CHOLECALCIFEROL 1000 INTER.UNIT TAB PO SCH (07:40)
[2018-04-04] MEDS: PSYLLIUM 58.6% PWD PACK S\\F PO SCH (07:40)
[2018-04-04] MEDS: ACYCLOVIR 200 MG CAP PO SCH ×2 (07:40→20:22)
[2018-04-04 08:00] VITALS: O2SAT 93
[2018-04-04 08:21] VITALS: BP 127/75; PULSE 68; TEMP 36.3; O2SAT 97
[2018-04-04 08:26] VITALS: BP 130/86; PULSE 109; O2SAT 99
[2018-04-04 15:53] VITALS: BP 126/66; PULSE 86; TEMP 38.4; O2SAT 96
[2018-04-04 16:00] VITALS: O2SAT 96
--- NOTE | 2018-04-04 16:07 | Family Medicine Progress Note ---
Progress Note Date of Service Apr 04, 2018. Subjective Pt evaluation today including: conversation w/ patient, conversation w/ family , physical exam, chart review, lab review PO Intake: adequate, tolerating regular diet Voiding: no voiding problems Doing better this morning, did report chills overnight, no documented fever overnight. Was able to get up and shower this morning. Constitutional: + chills, + sweats, + fatigue, No fever Respiratory: No cough, No sputum, No wheezing, No shortness of breath, No dyspnea on exertion Cardiovascular: No chest pain, No edema, No palpitations Abdomen: No pain, No nausea, No vomiting, No diarrhea, No constipation Musculoskeletal: + joint pain, + muscle pain Male : No dysuria, No urinary frequency, No incontinence, No nocturia more than once/night, No slowing stream Medications Current Inpatient Medications Medications (Trade) Dose Ordered Sig/[place] Route Start Time Stop Time Status Last Admin Dose Admin Ondansetron HCl (Zofran Inj) 4 mg Q6H PRN IV 04/02/18 17:45 05/02/18 17:44 Diphenhydramine HCl (Benadryl Inj) 50 mg Q6H PRN IV 04/02/18 17:45 05/02/18 17:44 Acetaminophen (Tylenol Tab) 650 mg Q4H PRN PO 04/02/18 18:00 05/02/18 17:59 04/04/18 15:28 650 MG Multivitamins (Multivitamin Tab) 1 tab QAM PO 04/03/18 09:00 05/03/18 08:59 04/04/18 07:40 1 TAB Pantoprazole Sodium (Protonix Tab) 40 mg DAILY PRN PO 04/02/18 18:00 05/02/18 17:59 Rosuvastatin Calcium (Crestor Tab) 10 mg HS PO 04/02/18 21:00 05/02/18 20:59 04/03/18 20:12 10 MG Cholecalciferol (Vitamin D Tab) 2,000 inter.unit QAM PO 04/03/18 09:00 05/03/18 08:59 04/04/18 07:40 2,000 INTER.UNIT Psyllium Hydrophilic Mucilloid (Metamucil Powder) 1 pkt QAM PO 04/03/18 09:00 9/9/18 08:59 04/04/18 07:40 1 PKT Tramadol HCl (Ultram Tab) 50 mg Q4H PRN PO 04/02/18 18:00 05/02/18 17:59 04/03/18 20:13 50 MG Miscellaneous (Iv Fluids Completed) 1 ea PRN PRN N/A 04/02/18 18:15 04/02/19 18:14 Doxycycline Hyclate (Vibramycin Cap) 100 mg BID PO 04/03/18 09:00 04/17/18 08:59 04/04/18 07:40 100 MG Ketorolac Tromethamine (Toradol Inj) 15 mg Q6H PRN IV 04/03/18 13:00 04/08/18 12:59 Acyclovir (Zovirax Cap) 400 mg BID PO 04/03/18 20:00 05/03/18 20:59 04/04/18 07:40 400 MG Objective Vital Signs Date Time Temp Pulse Resp B/P (MAP) Pulse Ox O2 Delivery O2 Flow Rate FiO2 04/04/18 15:53 38.4 86 18 126/66 (86) 96 Room Air 04/04/18 08:21 36.3 68 17 127/75 (92) 97 04/04/18 08:00 93 Room Air 04/04/18 00:00 Room Air 04/03/18 17:30 93 Room Air 04/03/18 17:26 36.7 99 18 106/65 (79) 93 Room Air 04/03/18 16:07 36.8 89 18 99 2.0 Physical Exam General Appearance: WD/WN, no apparent distress Eyes: PERRL, EOMI, sclerae normal, funduscopic exam normal Neck: supple, no adenopathy, thyroid normal Respiratory/Chest: chest non-tender, lungs clear, normal breath sounds, no respiratory distress, no accessory muscle use Cardiovascular: regular rate, rhythm, no edema, no murmur Abdomen: normal bowel sounds, non tender, soft, no organomegaly Extremities: non-tender, normal inspection, no pedal edema, no calf tenderness Neurologic/Psychiatric: alert, normal mood/affect, oriented x 3 Skin: normal color, warm/dry, no rash Laboratory Results 04/04/18 05:52 Red Blood Count 3.94, Mean Corpuscular Volume 88.8, Mean Corpuscular Hemoglobin 30.5, Mean Corpuscular Hemoglobin Concent 34.3, Mean Platelet Volume 11.0, Neutrophils (%) (Auto) 62.9, Lymphocytes (%) (Auto) 22.3, Monocytes (%) (Auto) 12.8, Eosinophils (%) (Auto) 0.0, Basophils (%) (Auto) 2.0, Neutrophils # (Auto ) 0.93, Lymphocytes # (Auto) 0.33, Monocytes # (Auto) 0.19, Eosinophils # (Auto ) 0.00, Basophils # (Auto) 0.03 04/04/18 05:52 Test 04/04/18 05:52 White Blood Count 1.48 K/uL (4.8-10.8) Red Blood Count 3.94 M/uL (4.7-6.1) Hemoglobin 12.0 g/dL (14.0-18.0) Hematocrit 35.0 % (42-52) Mean Corpuscular Volume 88.8 fL (80-100) Mean Corpuscular Hemoglobin 30.5 pg (25-34) Mean Corpuscular Hemoglobin Concent 34.3 g/dl (32-36) Platelet Count 29 K/uL (130-400) Mean Platelet Volume 11.0 fL (7.4-10.4) Neutrophils (%) (Auto) 62.9 % Lymphocytes (%) (Auto) 22.3 % Monocytes (%) (Auto) 12.8 % Eosinophils (%) (Auto) 0.0 % Basophils (%) (Auto) 2.0 % Neutrophils # (Auto) 0.93 K/uL (1.4-6.5) Lymphocytes # (Auto) 0.33 K/uL (1.2-3.4) Monocytes # (Auto) 0.19 K/uL (0.11-0.59) Eosinophils # (Auto) 0.00 K/uL (0-0.5) Basophils # (Auto) 0.03 K/uL (0-0.2) RDW Standard Deviation 44.5 fL (36.4-46.3) RDW Coefficient of Variation 13.5 % (11.5-14.5) Immature Granulocyte % (Auto) 0.0 % Immature Granulocyte # (Auto) 0.00 K/uL (0.00-0.02) Echinocytes 2+ Prothrombin Time 10.9 SECONDS (9.0-12.0) Prothromb Time International Ratio 1.0 (0.9-1.1) Activated Partial Thromboplast Time 34.9 SECONDS (21.0-31.0) Partial Thromboplastin Ratio 1.3 Anion Gap 7.0 mmol/L (3-11) Est Creatinine Clear Calc Drug Dose 110.8 ml/min Estimated GFR () 108.2 Estimated GFR (Non- 93.3 BUN/Creatinine Ratio 19.3 (10-20) Calcium Level 7.7 mg/dl (8.5-10.1) Magnesium Level 1.9 mg/dl (1.8-2.4) Total Bilirubin 0.6 mg/dl (0.2-1) Direct Bilirubin 0.2 mg/dl (0-0.2) Aspartate Amino Transf (AST/SGOT) 82 U/L (15-37) Alanine Aminotransferase (ALT/SGPT) 59 U/L (12-78) Alkaline Phosphatase 55 U/L (45-117) Total Protein 5.5 gm/dl (6.4-8.2) Albumin 2.7 gm/dl (3.4-5.0) Assessment and Plan Patient is a 72 yo M who presented to ED with a 2 day h/o fevers, chills, headache, myalgias, arthralgias, and nausea. Symptoms in conjunction with elevated POC lactate/LFT, low WBC, low plt is suggestive of anaplasmosis. 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 - Peripheral smear--suggest anaplasmosis based on leukocytic inclusions - Lyme tests negative - Continue doxycycline 100mg BID - If worsening lung symptoms in next 48 hours, consider CT chest then restart broad spectrum abx - Ehrlichiosis, anaplasmosis, EBV, CMV, parvovirus and coxsackie B titers pending. - Serial CBC with differential, chemistry profile and magnesium levels. - Toradol 15 q6prn if Tylenol not sufficient for headache. Thrombocytopenia/Leukocytosis/Anemia - Patient has a history of low platelets - Likely 2/2 infection, will continue to follow counts - If counts do not improve, will consult hematology - Hold aspirin GERD -Pantoprazole 40 mg daily. Hyperlipidemia -Continue rosuvastatin 10 mg hs Viral prophylaxis -Continue his acyclovir 400 mg p.o. twice daily. DVTP: none Code: FULL
[2018-04-04] MEDS ORDERED: IBUPROFEN 200 MG TAB PO PRN (18:00)
--- NOTE | 2018-04-04 18:52 | DIAGNOSTIC IMAGING REPORT ---
TWO VIEW CHEST CLINICAL HISTORY: Fever. FINDINGS: PA and lateral chest radiographs are compared to study dated 04/02/2018. The heart is top normal for projection and there is mild atherosclerotic calcification of the thoracic aorta. Streaky airspace opacities are seen at the left lung base. Trace pleural effusions are identified. There is no pneumothorax. The skeletal structures are osteopenic. Degenerative change is seen throughout the thoracic spine. IMPRESSION: There are streaky airspace opacities at the left lung base and trace pleural effusions. The appearance is concerning for pneumonia/aspiration pneumonitis. Clinical correlation will be required and radiographic follow-up to resolution is recommended. Electronically signed by: Johnson Muñoz M.D. 04/04/2018 6:50 PM Dictated Date/Time: 04/04/2018 6:47 PM
[2018-04-04] MEDS: CEFTRIAXONE SOD INJ 2,000 MG in DEXTROSE 5% 50ML 50 ML IV SCH (20:22)
[2018-04-04] MEDS: ROSUVASTATIN CALCIUM 10 MG TAB PO SCH (20:23)
[2018-04-04 23:10] VITALS: BP 133/77; PULSE 77; TEMP 37.1; O2SAT 98
[2018-04-05 04:15] VITALS: TEMP 37.2
[2018-04-05 07:50] VITALS: BP 165/88; PULSE 82; TEMP 36.6; O2SAT 96
[2018-04-05] MEDS: DOXYCYCLINE HYCLATE 100 MG CAP PO SCH ×2 (07:56→20:04)
[2018-04-05] MEDS: PSYLLIUM 58.6% PWD PACK S\\F PO SCH (07:56)
[2018-04-05] MEDS: MULTIVITAMIN TAB PO SCH (07:57)
[2018-04-05] MEDS: ACYCLOVIR 200 MG CAP PO SCH (07:57)
[2018-04-05] MEDS: CHOLECALCIFEROL 1000 INTER.UNIT TAB PO SCH (07:57)
[2018-04-05 08:30] LABS: HEMATOCRIT 40.8 % (42-52); HEMOGLOBIN 14.4 g/dL (14.0-18.0); MEAN CELL VOLUME 88.3 fL (80-100); MEAN CORPUSCULAR HEMOGLOBIN 31.2 pg (25-34); MEAN CORPUSCULAR HGB CONC 35.3 g/dl (32-36); RED CELL DISTRIBUTION WIDTH CV 13.4 % (11.5-14.5); RED CELL DISTRIBUTION WIDTH SD 43.6 fL (36.4-46.3); WHITE BLOOD COUNT 2.76 K/uL (4.8-10.8)
[2018-04-05 08:32] LABS: MEAN PLATELET VOLUME 10.9 fL (7.4-10.4); PLATELET COUNT 35 K/uL (130-400)
[2018-04-05 08:39] LABS: PTT PATIENT 28.4 SECONDS (21.0-31.0)
[2018-04-05 09:05] LABS: ALBUMIN 3.3 gm/dl (3.4-5.0); CALCIUM 8.5 mg/dl (8.5-10.1); CREATININE 0.84 mg/dl (0.60-1.40); POTASSIUM 3.8 mmol/L (3.5-5.1); TOTAL PROTEIN 7.1 gm/dl (6.4-8.2)
--- NOTE | 2018-04-05 13:09 | HEMATOLOGY CONSULTATION ---
DATE OF CONSULTATION: 04/05/2018 REASON FOR CONSULTATION: Pancytopenia. 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 He presented with 2 days persistent low-grade fever, headache, myalgias, arthralgias, chills, and nausea without vomiting. The patient was seen by his primary care physician on the day of admission and was subsequently sent to the Emergency Department for assessment. The patient has been worked up extensively, specifically seeking possible tick-borne illness, anaplasmosis per se. The patient is not aware of any tick bite or unusual rashes leading up to the febrile illness. 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 He has no history of hematologic disease or neoplasia otherwise. A multitude of viral cultures have been taken with results pending. I have been asked to see Dr. Morton because of his precipitously dropping peripheral blood counts. On admission, his white count was in the low normal range as well as hemoglobin and his platelets have dropped to 57,000. He does report following with hematology at [place] because of borderline low platelets, but has been subsequently released to the care of his primary physician and has not followed up further. Peripheral blood counts have been steadily dropping reaching jason yesterday at which time his white count had fallen to 1480, hemoglobin 12, and platelet count of 29,000. His absolute neutrophil count at that time was . Today, however, his counts are once again on the upswing and suspect will continue to head towards normal. His ANC is 1400 today. Clinically, he is much better and apparently being maintained on oral doxycycline. I fielded a multitude of questions from the patient and his and they have verbalized understanding. PAST MEDICAL HISTORY: Nephrolithiasis, recurrent cold sores. PAST SURGICAL HISTORY: Status post nephrectomy. MEDICATIONS: Prior to admission include Crestor 10 mg p.o. daily, Metamucil 1 dose p.o. q.a.m., Protonix 40 mg p.o. as needed, multivitamin 1 p.o. daily, omega fish oil 1000 mg p.o. daily, cholecalciferol 1 tablet p.o. daily, aspirin 81 mg p.o. daily, acyclovir 400 mg p.o. b.i.d., Extra Strength Tylenol 1300 mg p.o. p.r.n. ALLERGIES: LEVOFLOXACIN. FAMILY HISTORY: Positive for cancer, diabetes mellitus, gallbladder disease, and heart disease. SOCIAL HISTORY: The patient is a retired President of [employer]. He is . Nonsmoker, nondrinker, and resides with his family. REVIEW OF SYSTEMS: CONSTITUTIONAL: As per HPI most notably for fever, headache, arthralgias, myalgias, chills, rigors, with nausea and diaphoresis. His appetite has also been tenuous but is improving. No dramatic weight loss reported. SKIN: No rashes or lesions. He does have history of dermatosis, recently undergone Mohs procedure on the back of his head. HEENT: Again, initially reported headache which has subsided. No vertigo or lightheadedness reported. No acute visual or hearing deficits. No sinus symptoms, sore throat, or dysphagia. LYMPH: No history of lymphoproliferative disease. CARDIAC: No history of coronary artery disease, no angina or palpitations. PULMONARY: Negative for COPD. No shortness of breath, dyspnea or orthopnea. No cough or hemoptysis. GASTROINTESTINAL: Negative for abdominal pain. He was initially nauseated, but that has subsided. No emesis reported. No hematochezia, melena stools or paramjit rectal bleeding reported. GENITOURINARY: No history of prostate disease. No hematuria, dysuria, urinary incontinence. MUSCULOSKELETAL: Positive for arthralgias or myalgias, again, on admission, but have improved. He denies muscle weakness. PSYCHIATRIC: Negative for anxiety, depression, or psychoses. ENDOCRINE: Negative for diabetes or thyroid disease. NEUROLOGIC: Negative for seizure, stroke, or migraine headache. HEMATOLOGIC: Positive for pancytopenia. PHYSICAL EXAMINATION: GENERAL: Very pleasant, well-nourished 72-year-old gentleman, awake, alert, and appropriate, in no acute distress. VITAL SIGNS: Temperature 36.6, pulse 82, respiratory rate 16, blood pressure 165/88. SKIN: Warm, dry, noncyanotic without petechia, rash or ecchymosis. HEENT: Head is atraumatic, normocephalic. Eyes: PERRLA, EOMI. Sclerae nonicteric. No conjunctival injection. Nares patent without rhinorrhea or discharge. Throat is clear. Tongue is midline. Mucous membranes are moist. NECK: Supple without JVD or thyromegaly. LYMPH: No cervical, supraclavicular, axillary, or inguinal palpable nodes. HEART: Regular rate and rhythm. No clicks, rubs, murmurs, or gallops. LUNGS: Clear to auscultation bilaterally. ABDOMEN: Soft, nontender, nondistended, without palpable hepatosplenomegaly. EXTREMITIES: Musculoskeletal strength and pulses were equal in all 4 quadrants. No clubbing, cyanosis, or edema otherwise. NEUROLOGICAL: He is awake, alert, and oriented x3. Cranial nerves are grossly intact. LABORATORY DATA: WBC count 2760, hemoglobin 14.4, platelet count 35,000 with an absolute neutrophil count of 1400. Chemistries: Sodium 137, potassium 3.8, chloride 102, carbon dioxide 28, BUN 10, creatinine 0.84. AST 234, ALT 190, alkaline phosphatase is slightly elevated at 4.2, and albumin is 3.3 and improving. IMPRESSION: 1. Febrile illness, etiology unclear. 2. Elevated liver transaminases. 3. Pancytopenia secondary to myelosuppression. 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 They were both very helpful in providing pertinent clinical information leading to his admission. [place]. It is conceivable he suffered a tick-borne infection and titers are pending at the time of dictation. Clearly, he seems to be responding to current therapy and no intervention from a hematologic standpoint is necessary at this time. I informed Dr. Morton's as long as he continues to improve clinically, I see no reason for him not to be discharged in next 24 hours with close hematologic followup. I would be more than happy to see him in the office later on this week and check his peripheral blood counts. Presently, the diagnosis considered is anaplasmosis but certainly ehrlichiosis and possibly cytomegalovirus can also result in transient hepatitis. I will be anxious to review final culture results. I reassured Dr. Morton and his that I did not feel there is any evidence for an emerging hematologic malignancy and it is a very optimistic sign his counts are on the upswing and expect him to normalize within the next several days to week. Thank you very much for allowing me to participate in his care. If you have any questions or concerns, feel free to contact me at any time.
--- NOTE | 2018-04-05 14:38 | Family Medicine Progress Note ---
Progress Note Date of Service Apr 05, 2018. Subjective Pt evaluation today including: conversation w/ patient, conversation w/ family , physical exam, chart review, lab review Doing well this morning. Tolerating breakfast, ambulating normally, took a shower without assistance. Still feels fatigued. Constitutional: + fatigue, No fever, No chills, No sweats Respiratory: No cough, No sputum, No wheezing, No shortness of breath Cardiovascular: No chest pain, No edema, No palpitations Abdomen: No pain, No nausea, No vomiting, No diarrhea Medications Current Inpatient Medications Medications (Trade) Dose Ordered Sig/[place] Route Start Time Stop Time Status Last Admin Dose Admin Ondansetron HCl (Zofran Inj) 4 mg Q6H PRN IV 04/02/18 17:45 05/02/18 17:44 Diphenhydramine HCl (Benadryl Inj) 50 mg Q6H PRN IV 04/02/18 17:45 05/02/18 17:44 Multivitamins (Multivitamin Tab) 1 tab QAM PO 04/03/18 09:00 05/03/18 08:59 04/05/18 07:57 1 TAB Pantoprazole Sodium (Protonix Tab) 40 mg DAILY PRN PO 04/02/18 18:00 05/02/18 17:59 Rosuvastatin Calcium (Crestor Tab) 10 mg HS PO 04/02/18 21:00 05/02/18 20:59 Future Hold 04/04/18 20:23 10 MG Cholecalciferol (Vitamin D Tab) 2,000 inter.unit QAM PO 04/03/18 09:00 05/03/18 08:59 04/05/18 07:57 2,000 INTER.UNIT Psyllium Hydrophilic Mucilloid (Metamucil Powder) 1 pkt QAM PO 04/03/18 09:00 05/03/18 08:59 04/05/18 07:56 1 PKT Tramadol HCl (Ultram Tab) 50 mg Q4H PRN PO 04/02/18 18:00 05/02/18 17:59 04/03/18 20:13 50 MG Miscellaneous (Iv Fluids Completed) 1 ea PRN PRN N/A 04/02/18 18:15 04/02/19 18:14 Doxycycline Hyclate (Vibramycin Cap) 100 mg BID PO 04/03/18 09:00 04/17/18 08:59 04/05/18 07:56 100 MG Ketorolac Tromethamine (Toradol Inj) 15 mg Q6H PRN IV 04/03/18 13:00 04/08/18 12:59 Ibuprofen (Advil Tab) 400 mg QID PRN PO 04/04/18 18:00 05/04/18 17:59 Ceftriaxone Sodium 2000 mg/ Dextrose 70 ml @ 100 mls/hr Q24H IV 04/04/18 20:00 04/14/18 19:59 04/04/18 20:22 100 MLS/HR Objective Vital Signs Date Time Temp Pulse Resp B/P (MAP) Pulse Ox O2 Delivery O2 Flow Rate FiO2 04/05/18 08:00 Room Air 04/05/18 07:50 36.6 82 16 165/88 (113) 96 Room Air 04/05/18 04:15 37.2 04/04/18 23:30 Room Air 04/04/18 23:10 37.1 77 16 133/77 (95) 98 Room Air 04/04/18 20:00 Room Air 04/04/18 16:00 96 Room Air 04/04/18 15:53 38.4 86 18 126/66 (86) 96 Room Air Physical Exam General Appearance: WD/WN, no apparent distress Neck: supple, no adenopathy, trachea midline Respiratory/Chest: chest non-tender, lungs clear, normal breath sounds, no respiratory distress, no accessory muscle use, + crackles (bilateral bases ) Cardiovascular: regular rate, rhythm, no edema, no murmur Abdomen: normal bowel sounds, non tender, soft Extremities: normal range of motion, non-tender, no pedal edema Neurologic/Psychiatric: alert, normal mood/affect, oriented x 3 Skin: normal color, warm/dry, no rash Laboratory Results 04/05/18 08:18 Red Blood Count 4.62, Mean Corpuscular Volume 88.3, Mean Corpuscular Hemoglobin 31.2, Mean Corpuscular Hemoglobin Concent 35.3, Mean Platelet Volume 10.9 04/05/18 08:18 Test 04/05/18 08:18 White Blood Count 2.76 K/uL (4.8-10.8) Red Blood Count 4.62 M/uL (4.7-6.1) Hemoglobin 14.4 g/dL (14.0-18.0) Hematocrit 40.8 % (42-52) Mean Corpuscular Volume 88.3 fL (80-100) Mean Corpuscular Hemoglobin 31.2 pg (25-34) Mean Corpuscular Hemoglobin Concent 35.3 g/dl (32-36) Platelet Count 35 K/uL (130-400) Mean Platelet Volume 10.9 fL (7.4-10.4) RDW Standard Deviation 43.6 fL (36.4-46.3) RDW Coefficient of Variation 13.4 % (11.5-14.5) Neutrophils % (Manual) 51.2 % Lymphocytes % (Manual) 24.4 % Variant Lymphocytes % (manual) 16.0 % Monocytes % (Manual) 7.6 % Basophils % (Manual) 0.8 % (0-2) Neutrophils # (Manual) 1.41 K/uL (1.4-6.5) Total Absolute Neutrophils 1.41 K/uL (1.4-6.5) Lymphocytes # (Manual) 0.67 K/uL (1.2-3.4) Absolute Variant Lymphocytes 0.44 K/uL Total Absolute Lymphocytes 1.12 K/uL (1.2-3.4) Monocytes # (Manual) 0.21 K/uL (0.11-0.59) Basophils # (Manual) 0.02 K/uL (0-0.2) Large Platelets 1+ Prothrombin Time 10.1 SECONDS (9.0-12.0) Prothromb Time International Ratio 1.0 (0.9-1.1) Activated Partial Thromboplast Time 28.4 SECONDS (21.0-31.0) Partial Thromboplastin Ratio 1.1 Anion Gap 8.0 mmol/L (3-11) Est Creatinine Clear Calc Drug Dose 96.3 ml/min Estimated GFR () 102.1 Estimated GFR (Non- 88.1 BUN/Creatinine Ratio 11.3 (10-20) Calcium Level 8.5 mg/dl (8.5-10.1) Magnesium Level 2.0 mg/dl (1.8-2.4) Total Bilirubin 0.7 mg/dl (0.2-1) Direct Bilirubin 0.2 mg/dl (0-0.2) Aspartate Amino Transf (AST/SGOT) 234 U/L (15-37) Alanine Aminotransferase (ALT/SGPT) 190 U/L (12-78) Alkaline Phosphatase 142 U/L (45-117) Total Protein 7.1 gm/dl (6.4-8.2) Albumin 3.3 gm/dl (3.4-5.0) Assessment and Plan Patient is a 72 yo M who presented to ED with a 2 day h/o fevers, chills, headache, myalgias, arthralgias, and nausea. Symptoms in conjunction with elevated POC lactate/LFT, low WBC, low plt is suggestive of anaplasmosis. 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 - Serial CBC with differential, chemistry profile and magnesium levels - Ibuprofen for headache, fever Transaminitis - Elevated LFT's are consistent with Anaplasmosis, but the patient's numbers increased > 2 fold in the course of 24 hours despite clinical improvement - Patient does have a PMH of liver cyst, denies h/o fatty liver disease - Dc offending medications including Tylenol, Rosuvastatin and Acyclovir - Prudent to r/o viral hepatitis including Hep A/B/C, EBV, CMV--added to morning labs - Ordered Liver USG to be done this afternoon Thrombocytopenia/Leukocytosis/Anemia - WBC, PLT improved this am, no longer on neutropenic precautions - 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 Hyperlipidemia -Hold rosuvastatin 10 mg hs in the setting of increasing LFT's Viral prophylaxis - holding acyclovir in the setting of increasing LFT's - Awaiting hepatitis panel DVTP: none Code: FULL
[2018-04-05 15:27] VITALS: BP 153/83; PULSE 74; TEMP 36.6; O2SAT 96
--- NOTE | 2018-04-05 17:20 | DIAGNOSTIC IMAGING REPORT ---
ABDOMINAL ULTRASOUND, RIGHT UPPER QUADRANT HISTORY: Elevated liver function tests. COMPARISON: CT of the abdomen February 09, 2010. FINDINGS: Liver morphology is normal. Several anechoic hepatic lesions are consistent with cysts, as shown on prior imaging studies. No intrahepatic biliary ductal dilatation is identified. The common bile duct is mildly dilated, measuring 1 cm in caliber. No distal common bile duct calculi are identified although the distal common bile duct is obscured on this exam. No gallstones are identified. Moderate gallbladder wall thickening is noted. The wall appears edematous. There was no sonographic Harrison sign. Gallbladder is not distended. Pancreatic body is normal. Head and tail partially. There is no right hydronephrosis. IMPRESSION: 1. No gallstones. Moderate gallbladder wall thickening, a nonspecific finding. 2. Mild dilatation of the common bile duct. No common bile duct calculi identified although common bile duct obscured. This could be correlated with obstructive liver function tests. 3. Multiple hepatic cysts. Electronically signed by: Carlos Eduardo Hampton M.D. 04/05/2018 5:19 PM Dictated Date/Time: 04/05/2018 5:14 PM
[2018-04-05] MEDS: CEFTRIAXONE SOD INJ 2,000 MG in DEXTROSE 5% 50ML 50 ML IV SCH (20:03)
[2018-04-05 22:45] VITALS: BP 154/85; PULSE 67; TEMP 37; O2SAT 98
[2018-04-06 06:34] LABS: HEMATOCRIT 36.8 % (42-52); HEMOGLOBIN 12.7 g/dL (14.0-18.0); MEAN CELL VOLUME 88.2 fL (80-100); MEAN CORPUSCULAR HEMOGLOBIN 30.5 pg (25-34); MEAN CORPUSCULAR HGB CONC 34.5 g/dl (32-36); MEAN PLATELET VOLUME 11.1 fL (7.4-10.4); PLATELET COUNT 46 K/uL (130-400); RED CELL DISTRIBUTION WIDTH CV 13.5 % (11.5-14.5); RED CELL DISTRIBUTION WIDTH SD 43.8 fL (36.4-46.3); WHITE BLOOD COUNT 4.07 K/uL (4.8-10.8)
[2018-04-06 06:49] LABS: BASO % 2.9 %; BASO ABS # 0.12 K/uL (0-0.2); EOS % 0.5 %; EOS ABS # 0.02 K/uL (0-0.5); LYMPH % 58.7 %; LYMPH ABS # 2.39 K/uL (1.2-3.4); MONO % 13.5 %; MONO ABS # 0.55 K/uL (0.11-0.59); NEUT % 24.4 %; NEUT ABS # 0.99 K/uL (1.4-6.5)
[2018-04-06 06:54] LABS: ALBUMIN 3.1 gm/dl (3.4-5.0); CALCIUM 8.4 mg/dl (8.5-10.1); CREATININE 0.86 mg/dl (0.60-1.40); POTASSIUM 3.5 mmol/L (3.5-5.1); TOTAL PROTEIN 6.5 gm/dl (6.4-8.2)
--- NOTE | 2018-04-06 07:03 | Family Medicine Progress Note ---
Progress Note Date of Service Apr 06, 2018. Assessment and Plan Patient is a 72 yo M who presented to ED with a 2 day h/o fevers, chills, headache, myalgias, arthralgias, and nausea. Symptoms in conjunction with elevated POC lactate/LFT, low WBC, low plt is suggestive of anaplasmosis. 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 - Serial CBC with differential, chemistry profile and magnesium levels - Ibuprofen for headache, fever Transaminitis - Elevated LFT's are consistent with Anaplasmosis, but the patient's numbers increased > 2 fold in the course of 24 hours despite clinical improvement - Patient does have a PMH of liver cyst, denies h/o fatty liver disease - Dc offending medications including Tylenol, Rosuvastatin and Acyclovir - Prudent to r/o viral hepatitis including Hep A/B/C, EBV, CMV--added to morning labs - Ordered Liver USG to be done this afternoon Thrombocytopenia/Leukocytosis/Anemia - WBC, PLT improved this am, no longer on neutropenic precautions - 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 Hyperlipidemia -Hold rosuvastatin 10 mg hs in the setting of increasing LFT's Viral prophylaxis - holding acyclovir in the setting of increasing LFT's - Awaiting hepatitis panel DVTP: none Code: FULL
[2018-04-06 07:41] VITALS: BP 143/83; PULSE 63; TEMP 36.4; O2SAT 97
[2018-04-06] MEDS: PSYLLIUM 58.6% PWD PACK S\\F PO SCH (07:50)
[2018-04-06] MEDS: MULTIVITAMIN TAB PO SCH (07:50)
[2018-04-06] MEDS: CHOLECALCIFEROL 1000 INTER.UNIT TAB PO SCH (07:50)
[2018-04-06] MEDS: DOXYCYCLINE HYCLATE 100 MG CAP PO SCH (07:50)
[2018-04-06 08:30] LABS: HEP C IGG 13 YRS+OLDER_RFLX NEG (NEG)
--- NOTE | 2018-04-06 10:55 | INFECT. DISEASE CONSULTATION ---
DATE OF CONSULTATION: 04/06/2018 HISTORY OF PRESENT ILLNESS: This is a 72-year-old gentleman who was admitted to the hospital with 2 days of fever with headache, general body aches, arthralgias. He felt like he had the flu. His is present on my examination and provides additional history. He did have a Mohs surgery on Friday and was feeling well at that time, but began to feel ill on Friday afternoon, he thought this may be related to his surgery. He continued to feel worse Friday and and presented to the Emergency Room on the . At that time, he was found to be pancytopenic with a white blood cell count of 4.6. He also was thrombocytopenic with platelets of 56. A peripheral smear was done at that time and was consistent with anaplasmosis. He did have normal LFTs on arrival to the hospital; however, they did continue to climb, and on this morning, his AST is 281, ALT is 256. He also was noted to have fever on the , his T-max was 38 and on the it was 38.4. He has been afebrile since 4:00 p.m. on the . His CBC is improving and his blood cell count had dropped to as low as 1.4 on the , but today is 4.0. His platelets also dropped to 29, but today are improved to 46. He was placed on Rocephin and vancomycin empirically upon admission to the hospital, but then doxycycline was added on the . He remains on Rocephin. He denies any tick bites, but [place] and spends a significant amount of time outdoors. He denies any skin rashes. Today, he states he is feeling much better. He is ambulating in the hallway without any difficulty. He is eating well. He denies any abdominal pain. He has no nausea, vomiting or diarrhea. He is asking to be discharged to home. Blood cultures were obtained on the and again on the and these are negative. Flu swab was obtained and is negative. A Lyme titer was obtained and is negative. Anaplasma antibodies are pending at this time. REVIEW OF SYSTEMS: All remaining review of systems are reviewed and are unremarkable. PAST MEDICAL HISTORY: Significant for kidney stones, cold sores, vertigo. PAST SURGICAL HISTORY: Significant for nephrectomy. FAMILY HISTORY: Noncontributory. SOCIAL HISTORY: Significant for history of tobacco use. He denies any alcohol or drug use. ALLERGIES: HE HAS ALLERGIES TO LEVAQUIN. CURRENT MEDICATIONS: Rocephin, Advil, Toradol, multivitamins, vitamin D, Metamucil, doxycycline, Protonix, Ultram, Zofran and Benadryl. PHYSICAL EXAMINATION: VITAL SIGNS: He is currently afebrile, pulse 63, respiratory rate 16, blood pressure 143/83, oxygen saturation is 97% on room air. GENERAL: He is awake, alert and oriented x3. He is in no acute distress. HEENT: Mucous membranes are moist. Extraocular muscles are intact. HEART: Regular. LUNGS: Clear bilaterally. ABDOMEN: Soft, nontender, nondistended. There is no hepatosplenomegaly. EXTREMITIES: There is no lower extremity edema. SKIN: Without rash. ASSESSMENT AND PLAN: Anaplasmosis. He will continue doxycycline. He will need 14 days total. His Rocephin can be discontinued. I do not see any contraindication to discharge from an infectious diseases standpoint. Thank you for this consultation.
--- NOTE | 2018-04-06 11:06 | Progress Note ---
Progress Note Date of Service Apr 06, 2018. Progress Note ID Consult Dictated #[id number] A/P: 1. Anaplasmosis -Continue doxy, will need 14 days total, stop rocephin -suspect increased LFTs due to tick borne illness, would repeat in 7 days -take doxy with food and remain out of sun if able, use sunscreen -All questions answered -Ok for d/c from ID standpoint when otherwise stable
[2018-04-06 11:39] VITALS: BP 143/83; PULSE 63; TEMP 36.4; O2SAT 97
[2018-04-06] MEDS ORDERED: DXY100 PO ×2 (11:45→11:51)
--- NOTE | 2018-04-06 11:55 | Discharge Instructions ---
Discharge Instructions Date of Service Apr 06, 2018. Admission Reason for Admission: Fever,Pancytopenia Discharge Discharge Diagnosis / Problem: Anaplasmosis Discharge Goals Goal(s): Improve function, Increase independence, Improve disease control Activity Recommendations Activity Limitations: resume your previous activity . Instructions / Follow-Up Instructions / Follow-Up You were seen at [facility] for fever, chills, headache, and joint and muscle pain. You were diagnosed with an infection called anaplasmosis, and treated with an antibiotic called doxycycline. You require 10 more days of the antibiotic in order to complete the regimen of doxycycline. We gave you a dose this morning. Please take your first dose at home tonight. Anaplasmosis can cause a drop in your white cells, which fight infection, as well as your platelet levels. You were seen by a associate scientist here in the hospital who agrees that your low cell counts are likely due to the infection, and will improve as you continue to get better. Your liver enzymes were also elevated as well, which can be seen in anaplasmosis. We recommend having your platelets and liver enzymes rechecked on to ensure this is improving. Please follow up with your primary care provider to have this arranged. In the meantime, please try and abstain from alcohol use, and stop using Tylenol or taking rosuvastatin, until these numbers start to improve. We also recommend stopping your aspirin until your platelet levels start to improve. As well, doxycycline can lower your threshold to sustain sunburns. Please make sure you use sunscreen and a hat when out in the sun. Please also take your antibiotic with food, and have probiotics/yogurt with live tyler to reduce your risk of a stomach upset. Current Hospital Diet Patient's current hospital diet: Regular Diet Discharge Diet Recommended Diet: Regular Diet Pending Studies Studies pending at discharge: yes List of pending studies: Anaplasmosis, EBV, CMV, Hepatitis A & C, Parvovirus, Ehrlichiosis, Coxsackie Virus, Medical Emergencies . Who to Call and When: Medical Emergencies: If at any time you feel your situation is an emergency, please call 911 immediately. . Non-Emergent Contact Non-Emergency issues call your: Primary Care Provider . . "Provider Documentation" section prepared by Robin Gale. .
--- NOTE | 2018-04-06 11:59 | Discharge Summary ---
Discharge Summary Date of Service Apr 06, 2018. Discharge Summary Admission Date: Apr 05, 2018 at 14:14 Discharge Disposition: Home Principal Diagnosis: Anaplasmosis Problems/Secondary Diagnoses: 1) GERD 2) Hyperlipidemia Immunizations: Have You Had Influenza Vaccine: Unknown History of Tetanus Vaccine?: Unknown History of Pneumococcal: Unknown History of Hepatitis B Vaccine: Unknown Procedures: TWO VIEW CHEST CLINICAL HISTORY: Fever. FINDINGS: PA and lateral chest radiographs are compared to study dated 04/02/2018. The heart is top normal for projection and there is mild atherosclerotic calcification of the thoracic aorta. Streaky airspace opacities are seen at the left lung base. Trace pleural effusions are identified. There is no pneumothorax. The skeletal structures are osteopenic. Degenerative change is seen throughout the thoracic spine. IMPRESSION: There are streaky airspace opacities at the left lung base and trace pleural effusions. The appearance is concerning for pneumonia/aspiration pneumonitis. Clinical correlation will be required and radiographic follow-up to resolution is recommended. ABDOMINAL ULTRASOUND, RIGHT UPPER QUADRANT HISTORY: Elevated liver function tests. COMPARISON: CT of the abdomen February 09, 2010. FINDINGS: Liver morphology is normal. Several anechoic hepatic lesions are consistent with cysts, as shown on prior imaging studies. No intrahepatic biliary ductal dilatation is identified. The common bile duct is mildly dilated, measuring 1 cm in caliber. No distal common bile duct calculi are identified although the distal common bile duct is obscured on this exam. No gallstones are identified. Moderate gallbladder wall thickening is noted. The wall appears edematous. There was no sonographic Harrison sign. Gallbladder is not distended. Pancreatic body is normal. Head and tail partially. There is no right hydronephrosis. IMPRESSION: 1. No gallstones. Moderate gallbladder wall thickening, a nonspecific finding. 2. Mild dilatation of the common bile duct. No common bile duct calculi identified although common bile duct obscured. This could be correlated with obstructive liver function tests. 3. Multiple hepatic cysts. Consultations: Hematology/Oncology Infectious Diseases Medication Reconciliation New Medications: Doxycycline Hyclate (Doxycycline Hyclate) 100 Mg Cap 100 MG PO BID for 10 Days, #21 CAP Continued Medications: Acyclovir (Zovirax) 200 Mg Cap 400 MG PO BID, CAP Cholecalciferol (Vitamin D3) 2,000 Unit Tab 1 TAB PO QAM for 90 Days, #90 TAB 3 Refills Fish Oil ([place]-3) 1 Ea Cap 1000 MG PO QAM, CAP Multivitamin (Multivitamin) Tab 1 TAB PO QAM, TAB Pantoprazole (Protonix) 40 Mg Tab 40 MG PO PRN, #30 TAB Psyllium (Metamucil) 48.57 % Pow 1 DOSE PO QAM Discontinued Medications: Acetaminophen (Tylenol Arthritis Ext Rel) 650 Mg Cplt 1300 MG PO prn ud, CAP Aspirin (Aspirin Ec) 81 Mg Tab 81 MG PO DAILY Rosuvastatin Calcium (Crestor) 10 Mg Tab 10 MG PO HS Discharge Exam Mr. Morton reports he feels well today. He denies any headaches, fever, chills , nausea or vomiting. He states he was able to take a brisk walk around the hospital and felt fine doing so. He has no new complaints. Review of Systems: Constitutional: No fever, No chills Respiratory: No cough, No sputum, No shortness of breath Cardiovascular: No chest pain Abdomen: No nausea, No vomiting Physical Exam: General Appearance: WD/WN, no apparent distress Respiratory/Chest: lungs clear, normal breath sounds, no respiratory distress, no accessory muscle use Cardiovascular: regular rate, rhythm, no edema, no gallop, no murmur, normal peripheral pulses Abdomen / GI: non tender, soft Hospital Course Mr. Morton is a 72 year old male who presented to ED with a 2 day h/o fevers, chills, headache, myalgias, arthralgias, and nausea. Symptoms in conjunction with elevated POC lactate/LFT, low WBC, low plt was suggestive of anaplasmosis. 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 - Improved with doxycyline 100mg BID, continue for 10 more days as per ID - initially placed on neutropenic precautions due to low neutrophil levels - on d/c WCC 4.07, Hgb 12.7, and platelets stable at 46 - recommend recheck of CBC on to ensure improving - hold aspirin on d/c given low platelets Transaminitis - Elevated LFT's are consistent with Anaplasmosis - Hold offending medications including Tylenol and Rosuvastatin - viral hepatitis labs ordered and pending -> including Hep A/B/C, EBV, CMV - Liver U/S did show mild dilatation of the common bile duct however labs are not consistent with an obstructive picture - recheck LFTs on Thrombocytopenia/Leukocytosis/Anemia - Labs are consistent with Anaplasmosis, improvement is reassuring - hematology/oncology was consulted and agreed this was likely secondary to anaplasmosis and would improve with treatment - Hold aspirin Possible secondary PNA vs pneumonitis - Started on Rocephin due to concerns of spiking a fever while on doxycycline, however no pulmonary symptoms - doxycycline would cover for a possible pneumonia, but suspect fever was secondary to anasplasmosis as opposed to new infection Hyperlipidemia -Hold rosuvastatin 10 mg hs in the setting of increas LFTs - can resume in outpatient setting Viral prophylaxis - held acyclovir in the setting of increasing LFTs, restarted on d/c given pt at high risk of outbreak of cold sores w/acute illness Resident Physician Supervision Note: I was present with the resident physician during the history and exam. I discussed the case with the resident and agree with the findings and plan as documented in the note. Upon exam, the patient appears well. He is ambulatory in the hallway without complaints. HEENT: unremarkable. Lungs: CTA. CV RRR. Mo murmurs appreciated. IMP/PLAN Anaplasmosis, improving on doxycycline. Doxycycline 100 mg PO BID x 10 days additional CMP and CBC in 2-3 days. PCP later this week or early next week. Patient will call with questions, concerns, or change in symptoms. Documented By: Malcolm Sales Total Time Spent: Greater than 30 minutes This includes examination of the patient, discharge planning, medication reconciliation, and communication with other providers. Total time I spent in all of the above activities was 50 minutes. Discharge Instructions Please refer to the electronic Patient Visit Report (Discharge Instructions) for additional information. Additional Copies To Ronen Claros M.D. Resident Tracking Resident Involvement: Resident Care Provided Care Provided: Adult [facility] Medicine
[2018-04-07 04:28] LABS: HEPATITIS A IGM TC 51813E NON-REACTIVE (NON-REACTIVE); HEPATITIS B CORE IGM TC51854R NON-REACTIVE (NON-REACTIVE)
[2018-04-07 13:40] LABS: PARVOVIRUS IgM INDEX 0.1 (<0.9)
== END 2018-04-06 13:35 | disposition home or self-care (01) | DRG 868 ==
LOC: C.EDB 15:25 → C.2E 17:59 → EEVIPCON 17:59 → ENRESERV 18:21 → CANRESERV 04-03 15:52 → ENRESERV 04-03 15:52 → CANBEDREQ 04-03 15:53 → ENRESERV 04-03 15:57 → CANRESERV 04-03 15:57 → ENRESERV 04-03 16:03 → C.4E 04-03 17:18 → EEVIPCON 04-05 14:14 → OBSVTOIN 04-05 14:14
PROVIDERS: ADMIT Hospitalist; ATTEND Hospitalist
DX: A77.49 Other ehrlichiosis (principal); E87.2 Acidosis; J98.11 Atelectasis; D61.818 Other pancytopenia; E78.5 Hyperlipidemia, unspecified; Z90.5 Acquired absence of kidney; E11.9 Type 2 diabetes mellitus without complications; Z87.891 Personal history of nicotine dependence; Z83.3 Family history of diabetes mellitus; Z88.1 Allergy status to other antibiotic agents; D69.6 Thrombocytopenia, unspecified; K21.9 Gastro-esophageal reflux disease without esophagitis; Z87.442 Personal history of urinary calculi